=== PATIENT | female | born 1980 ===

== ENCOUNTER → 2022-11-27 07:51 | Outpatient (BNVA) | payer OTHER, SELFPAY | PROVIDERS: PCP Internal Medicine; Visit Provider Psychiatry & Neurology Neurology | DX: Z13.89 Encounter for screening for other disorder (principal) ==

== ENCOUNTER 2023-05-11 07:26 | Outpatient (AMB) | payer OTHER, SELFPAY ==
--- NOTE | 2023-05-11 07:35 | A.OFFVIS_ITS ---
Intake Vital Signs 05/11/23 07:39 Weight 179 lb 4 oz BP 122/62 Blood Pressure Location Rt brachial Position Sitting Pulse 83 Pulse Source Pulse Oximeter Pulse Oximetry (%) 97 Oxygen Delivery Method Room Air Intake Visit Reasons: 2m f/u tingling sens on head/heavy on l side-Conf Intake Note: F/U tingling sensation in head, and numbness also tingling below the back of the neck. 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 she had her baby 4 months ago. she is scheduled for MRI in2 weeks.she still has episodes of numbness and tingling in the left side of head and very concerned about her cogn itive issues. Previous history-SHe is here for tingling and pressure in the left side of the head which started in January of 2021.she has 0-1 episodes a month.It lasts less than 10 minutes. 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 she continued to feel the tingling in left side of face and head and numbness.1 month prior to that her OCP was changed . she felt like the left side of the head was heavy. 2 mths after the symptoms slowly decreased but she had started on aspirin at that time.In January 2021 - she was seen at ER CT head was normal , was seen by neurologist and started on aspirin. she also had on and off pain in left parietal region. she was seen by Dr. De La Paz she was not happy with the appointment. she is not sure if she was on concerta at that time. she is a poor historian - she has lot of details but valencia snot remember some important information. She has been good for past 18 mths with very brief episodes 1/2 mths . she does not think her untreated ADD is causing her memory issues. no h/o migraines in past. sleep is good. [facility] Medical History ADD (attention deficit disorder) Anemia Anxiety Back pain Cervicalgia Depression Environmental allergies Hypersomnia Snoring Vitamin D deficiency Surgical History H/O breast biopsy H/O section Family History Mother Cancer Hypertension Maternal Grandmother Heart disease CHF (congestive heart failure) Social History Household Members: Significant Other and Children Alcohol intake: never Patient Tobacco Use Status: Never used Tobacco Physical Exam Vital Signs: Last Vital Signs Pulse 83 05/11/23 07:39 BP 122/62 05/11/23 07:39 Pulse Ox 97 05/11/23 07:39 Oxygen Delivery Method Room Air 05/11/23 07:39 Const General: cooperative and healthy appearing Nutritional Appearance: obese Orientation/consciousness: patient oriented x3 HEENT Head: Yes normal to inspection and Yes normocephalic Eyes Pupils: Equal, round and reactive pupils present Neck Neck: Yes no meningeal signs Neuro General: patient oriented x3, tone normal, moves all extremities, no meningeal signs and no focal motor deficits Cranial nerves: Yes Facial sensation intact/muscles of mastication intact, Yes Equal, round and reactive pupils present, Yes Bilaterally intact EOM present, Yes Nystagmus not present, Yes Normal facial strength present, Yes Midline tongue present, Yes Symmetric palate elevation present and Yes Ability to bilaterally rotate head present Cognition (Neuro): normal cognition Gait exam (Neuro): Normal gait present Motor exam (neuro): 5/5 motor strength present throughout and Normal motor musc le tone present throughout Coordination: [id number] test normal Assessment & Plan Assessment & Plan (1) Tingling of face: Comment: left face and head Code(s): R20.2 - Paresthesia of skin (2) Pressure in head: Comment: brief episodes -better now Code(s): R51.9 - Headache, unspecified (3) Cognitive change: Code(s): R41.89 - Other symptoms and signs involving cognitive functions and awareness Plan MRI Brain - after her baby. X ray c spine neuropsyhc evaluation Orders: Orders XR cervical spine 3V Today M54.2 - Cervicalgia RT home sleep study Today G47.10 - Hypersomnia, unspecified, R06.83 - Snoring, R41.89 - Other symptoms and signs involving cognitive functions and awareness Referrals Neuropsychiatry Referral F98.8 - Other specified behavioral and emotional disorders with onset usually occurring in childhood and adolescence, R41.89 - Other symptoms and signs involving cognitive functions and awareness Coding Level of Care Code Est Pt Level 4 (52174) Diagnoses Tingling of face R20.2 Pressure in head R51.9 Cognitive change R41.89
[2023-05-11 07:39] VITALS: BP 122/62; PULSE 83; O2SAT 97
== END 2023-05-11 08:23 | disposition home or self-care (01) ==
LOC: HO.HSMS 07:26
PROVIDERS: PCP Internal Medicine; Visit Provider Psychiatry & Neurology Neurology
DX: R20.2 Paresthesia of skin (principal); R51.9 Headache, unspecified; R41.89 Other symptoms and signs involving cognitive functions and awareness
CPT/HCPCS: 99214

== ENCOUNTER → 2023-05-11 07:26 | Outpatient (BNVA) | payer OTHER, SELFPAY | PROVIDERS: PCP Internal Medicine; Visit Provider Psychiatry & Neurology Neurology ==

== ENCOUNTER 2023-05-29 13:11 | Outpatient (REF) | payer OTHER, SELFPAY ==
--- NOTE | ~2023-05-29 | MR_ITS ---
EXAMINATION: MR BRAIN WITHOUT AND WITH CONTRAST CLINICAL INFORMATION: Headache COMPARISON: None TECHNIQUE: Multiplanar multisequence MR imaging of the brain was obtained without and following the administration of 8.5 mL Gadavist intravenous contrast. FINDINGS: There is no acute infarct on diffusion-weighted imaging. There is no intracranial hemorrhage on iron-sensitive imaging. No extra-axial collection or mass effect/herniation. There are several scattered foci of nonspecific supratentorial white matter T2/FLAIR signal abnormality. No hydrocephalus. The ventricles are normal in morphology and size. No abnormal parenchymal or extra-axial enhancement. 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 The major flow voids at the skull base are preserved. The midline structures are normal. The cerebellar tonsils are normally positioned. The craniocervical junction is normal. Marrow signal is within normal limits. The visualized soft tissues are without significant abnormality. Mild left maxillary sinus mucosal thickening. MR/MR head/brain wo/w con IMPRESSION: Unremarkable contrast enhanced MRI of the brain.
== END 2023-05-29 13:12 | disposition home or self-care (01) ==
LOC: HO.MRI 13:11
PROVIDERS: PCP Internal Medicine; Visit Provider Nurse Practitioner Family
DX: R51.9 Headache, unspecified (principal); R20.2 Paresthesia of skin; R41.89 Other symptoms and signs involving cognitive functions and awareness
CPT/HCPCS: 70553; A9585

== ENCOUNTER 2023-06-29 08:17 | Outpatient (AMB) | payer OTHER, SELFPAY ==
[2023-06-29 08:26] VITALS: BP 122/86; PULSE 77; O2SAT 98; BMI 32.6
--- NOTE | 2023-06-29 08:26 | MHC.OFFVIS ---
Intake Vital Signs 06/29/23 08:26 Height 5 ft 2 in Weight 178 lb 4 oz BMI 32.6 BP 122/86 Blood Pressure Location Rt brachial Position Sitting Pulse 77 Pulse Source Pulse Oximeter Pulse Oximetry (%) 98 Oxygen Delivery Method Room Air Intake Visit Reasons: 6wk f/u tingling sens-confirmed Intake Note: Pt presents to the office today for a 6 week follow up for tingling sensations. Pt states her tingling sensations in her neck have decreased since her last visit. She states in the past few week she has have very rare tingling sensations and in the past week she hasn't had any tingling sensations. Allergies No Known Allergies Allergy (Verified 06/29/23 08:27) HPI HPI Comments History of Present Illness Details 42y/o left handed female comes for follow up. she had her baby 5 months ago . Her MRI was normal . Her sleep study was not approved. SHe reports loud snoring , difficulty falling asleep and staying. she also has a 5 month old baby that disrupts the sleep.she is still waiting for her neuropsych she still has episodes of numbness and tingling in the left side of head but less frequent.she has been very busy - 4 year old, going back to work, 5 month old baby etc. She feels her cognition seems better as she is less anxious and not working. Previous history-SHe is here for tingling and pressure in the left side of the head which started in January of 2021.she has 0-1 episodes a month.It lasts less than 10 minutes. 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 she continued to feel the tingling in left side of face and head and numbness.1 month prior to that her OCP was changed . she felt like the left side of the head was heavy. 2 mths after the symptoms slowly decreased but she had started on aspirin at that time.In January 2021 - she was seen at ER CT head was normal , was seen by neurologist and started on aspirin. she also had on and off pain in left parietal region. she was seen by Dr. De La Paz she was not happy with the appointment. she is not sure if she was on concerta at that time. she is a poor historian - she has lot of details but valencia snot remember some important information. She has been good for past 18 mths with very brief episodes 1/2 mths . she does not think her untreated ADD is causing her memory issues. no h/o migraines in past. sleep is good. [facility] Medical History ADD (attention deficit disorder) Anemia Anxiety Back pain Cervicalgia Depression Environmental allergies Hypersomnia Snoring Vitamin D deficiency Surgical History H/O breast biopsy H/O section Family History Mother Cancer Hypertension Maternal Grandmother Heart disease CHF (congestive heart failure) Social History Household Members: Significant Other and Children Alcohol intake: never Patient Tobacco Use Status: Never used Tobacco Physical Exam Vital Signs: Last Vital Signs Pulse 77 06/29/23 08:26 BP 122/86 06/29/23 08:26 Pulse Ox 98 06/29/23 08:26 Oxygen Delivery Method Room Air 06/29/23 08:26 BMI result Body Mass Index 32.6 Const General: cooperative and healthy appearing Nutritional Appearance: obese Orientation/consciousness: patient oriented x3 HEENT Head: Yes normal to inspection and Yes normocephalic Eyes Pupils: Equal, round and reactive pupils present Neck Neck: Yes no meningeal signs Neuro General: patient oriented x3, tone normal, moves all extremities, no meningeal signs and no focal motor deficits Cranial nerves: Yes Facial sensation intact/muscles of mastication intact, Yes Equal, round and reactive pupils present, Yes Bilaterally intact EOM present, Yes Nystagmus not present, Yes Normal facial strength present, Yes Midline tongue present, Yes Symmetric palate elevation present and Yes Ability to bilaterally rotate head present Cognition (Neuro): normal cognition Gait exam (Neuro): Normal gait present Motor exam (neuro): 5/5 motor strength present throughout and Normal motor muscle tone present throughout Coordination: [id number] test normal Assessment & Plan Assessment & Plan (1) Tingling of face: Comment: left face and head Code(s): R20.2 - Paresthesia of skin (2) Pressure in head: Comment: brief episodes -better now Code(s): R51.9 - Headache, unspecified (3) Cognitive change: Code(s): R41.89 - Other symptoms and signs involving cognitive functions and awareness Plan MRI Brain - normal Discussed about talking to a therapist - anxious about going back to work neuropsyhc evaluation Coding Level of Care Code Est Pt Level 4 (35647) Diagnoses Tingling of face R20.2 Pressure in head R51.9 Cognitive change R41.89
== END 2023-06-29 09:12 | disposition home or self-care (01) ==
PROVIDERS: PCP Internal Medicine; Visit Provider Psychiatry & Neurology Neurology
DX: R20.2 Paresthesia of skin (principal); R51.9 Headache, unspecified; R41.89 Other symptoms and signs involving cognitive functions and awareness
CPT/HCPCS: 99214

== ENCOUNTER → 2023-06-29 08:17 | Outpatient (BNVA) | payer OTHER, SELFPAY | PROVIDERS: PCP Internal Medicine; Visit Provider Psychiatry & Neurology Neurology | DX: M54.2 Cervicalgia (principal); R41.89 Other symptoms and signs involving cognitive functions and awareness; F98.8 Other specified behavioral and emotional disorders with onset usually occurring in childhood and adolescence; R06.83 Snoring; G47.10 Hypersomnia, unspecified ==

== ENCOUNTER 2024-01-25 14:00 | Outpatient (AMB) | payer OTHER, SELFPAY ==
--- NOTE | 2024-01-25 14:12 | A.OFFVIS_ITS ---
Intake Vital Signs 01/25/24 14:13 Height 5 ft 2 in Weight 175 lb BMI 32.0 BP 138/78 Blood Pressure Location Rt brachial Position Sitting Respiration 16 Pulse 93 Pulse Source Pulse Oximeter Pulse Oximetry (%) 98 Oxygen Delivery Method Room Air Intake Visit Reasons: m follow up tingling sen/lvm Intake Note: Pt present for a 7 month follow up for cognitive changes. Pt reports her headaches have improved significantly, but her inattention and hyperactivity is driving me crazy . 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 No further episodes of headaches associate dwith numbness and tingling. sometimes she still has some head pressure on the left parietal region - lasted few minutes. she was still able to work . no neck pain. she is on waiting list for neuropsych. she had her baby 12 months ago . Her MRI was normal . 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 Previous history-SHe is here for tingling and pressure in the left side of the head which started in January of 2021.she has 0-1 episodes a month.It lasts less than 10 minutes. 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 she continued to feel the tingling in left side of face and head and numbness.1 month prior to that her OCP was changed . she felt like the left side of the head was heavy. 2 mths after the symptoms slowly decreased but she had started on aspirin at that time.In January 2021 - she was seen at ER CT head was normal , was seen by neurologist and started on aspirin. she also had on and off pain in left parietal region. she was seen by Dr. De La Paz she was not happy with the appointment. she is not sure if she was on concerta at that time. she is a poor historian - she has lot of details but does not remember some important information. [facility] Medical History Hypersomnia Snoring Cervicalgia Environmental allergies ADD (attention deficit disorder) Anxiety Depression Back pain Vitamin D deficiency Anemia Surgical History H/O section H/O breast biopsy Family History Mother Cancer Hypertension Maternal Grandmother Heart disease CHF (congestive heart failure) Social History Household Members: Significant Other and Children Alcohol intake: never Patient Tobacco Use Status: Never used Tobacco Physical Exam Vital Signs: Last Vital Signs Pulse 93 01/25/24 14:13 Resp 16 01/25/24 14:13 BP 138/78 01/25/24 14:13 Pulse Ox 98 01/25/24 14:13 Oxygen Delivery Method Room Air 01/25/24 14:13 BMI result Body Mass Index 32.0 Const General: cooperative and healthy appearing Orientation/consciousness: patient oriented x3 HEENT Head: Yes normal to inspection and Yes normocephalic Eyes Pupils: Equal, round and reactive pupils present Neck Neck: Yes no meningeal signs Neuro General: patient oriented x3, tone normal, moves all extremities, no meningeal signs and no focal motor deficits Cranial nerves: Yes Facial sensation intact/muscles of mastication intact, Yes Equal, round and reactive pupils present, Yes Bilaterally intact EOM present, Yes Nystagmus not present, Yes Normal facial strength present, Yes Midline tongue present, Yes Symmetric palate elevation present and Yes Ability to bilaterally rotate head present Cognition (Neuro): normal cognition Gait exam (Neuro): Normal gait present Motor exam (neuro): 5/5 motor strength present throughout and Normal motor muscle tone present throughout Coordination: [id number] test normal Assessment & Plan Assessment & Plan (1) Tingling of face: Comment: left face and head Code(s): R20.2 - Paresthesia of skin (2) Pressure in head: Comment: brief episodes -better now Code(s): R51.9 - Headache, unspecified (3) Cognitive change: Code(s): R41.89 - Other symptoms and signs involving cognitive functions and awareness Plan MRI Brain - normal She has been working 45 hrs a week - feels she is taking a longer time than other people. Neuropsyhc evaluation Suggested psychotherapy for mood. start concerta 18mg qd- PCP will continue prescribing Medications: New methylphenidate HCl ER (Concerta) F/u with PCP 18 mg PO DAILY 30 tabs 0RF Coding Level of Care Code Est Pt Level 4 (83234) Diagnoses Tingling of face R20.2 Pressure in head R51.9 Cognitive change R41.89
[2024-01-25 14:13] VITALS: BP 138/78; PULSE 93; RESP 16; O2SAT 98; BMI 32.0
== END 2024-01-25 14:41 | disposition home or self-care (01) ==
PROVIDERS: PCP Internal Medicine; Visit Provider Psychiatry & Neurology Neurology
DX: R20.2 Paresthesia of skin (principal); R51.9 Headache, unspecified; R41.89 Other symptoms and signs involving cognitive functions and awareness
CPT/HCPCS: 99214

== ENCOUNTER → 2024-01-25 14:00 | Outpatient (BNVA) | payer OTHER, SELFPAY | PROVIDERS: PCP Internal Medicine; Visit Provider Psychiatry & Neurology Neurology | DX: M54.2 Cervicalgia (principal); R41.89 Other symptoms and signs involving cognitive functions and awareness; F98.8 Other specified behavioral and emotional disorders with onset usually occurring in childhood and adolescence; R06.83 Snoring; G47.10 Hypersomnia, unspecified; R20.2 Paresthesia of skin; R51.9 Headache, unspecified ==

== ENCOUNTER 2024-12-01 15:01 | Outpatient (AMB) | payer OTHER, SELFPAY ==
[2024-12-01 15:08] VITALS: BP 132/84; BMI 34.9
--- NOTE | 2024-12-01 15:08 | MHC.OFFVIS ---
Vital Signs 12/01/24 15:08 Height 5 ft 2 in Weight 191 lb BMI 34.9 BP 132/84 Blood Pressure Location Rt brachial Position Sitting Intake Visit Reasons: 8 mnts f/u appt Intake Note: Patient presents for 8 month follow up Allergies No Known Allergies Allergy (Verified 12/01/24 15:09) HPI Comments Details: 44y/o left handed female comes for follow up.Her neuropsych testing was normal . No further episodes of headaches . Her MRI was normal . 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 she is interested in sleep study - was postponed due to she has snoring and daytime fatigue Previous history-SHe is here for tingling and pressure in the left side of the head which started in January of 2021.she has 0-1 episodes a month.It lasts less than 10 minutes. 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 she continued to feel the tingling in left side of face and head and numbness.1 month prior to that her OCP was changed . she felt like the left side of the head was heavy. 2 mths after the symptoms slowly decreased but she had started on aspirin at that time.In January 2021 - she was seen at ER CT head was normal , was seen by neurologist and started on aspirin. she also had on and off pain in left parietal region. she was seen by Dr. De La Paz she was not happy with the appointment. she is not sure if she was on concerta at that time. she is a poor historian - she has lot of details but does not remember some important information. COUNT INCLUDES [facility] Medical History Hypersomnia Snoring Cervicalgia Environmental allergies ADD (attention deficit disorder) Anxiety Depression Back pain Vitamin D deficiency Anemia Surgical History H/O section H/O breast biopsy Family History Mother Cancer Hypertension Maternal Grandmother Heart disease CHF (congestive heart failure) Social History Household Members: Significant Other and Children Alcohol intake: never Patient Tobacco Use Status: Never used Tobacco Physical Exam Vital Signs: Last Vital Signs BP 132/84 12/01/24 15:08 BMI result Body Mass Index 34.9 Const General: cooperative and healthy appearing Orientation/consciousness: patient oriented x3 HEENT Head: Yes normal to inspection and Yes normocephalic Eyes Pupils: Equal, round and reactive pupils present Neck Neck: Yes no meningeal signs Neuro General: patient oriented x3, tone normal, moves all extremities, no meningeal signs and no focal motor deficits Cranial nerves: Yes Facial sensation intact/muscles of mastication intact, Yes Equal, round and reactive pupils present, Yes Bilaterally intact EOM present, Yes Nystagmus not present, Yes Normal facial strength present, Yes Midline tongue present, Yes Symmetric palate elevation present and Yes Ability to bilaterally rotate head present Cognition (Neuro): normal cognition Gait exam (Neuro): Normal gait present Motor exam (neuro): 5/5 motor strength present throughout and Normal motor muscle tone present throughout Coordination: [id number] test normal Assessment & Plan Assessment & Plan (1) Cognitive change: Code(s): R41.89 - Other symptoms and signs involving cognitive functions and awareness Category: Medical (2) Snoring: Code(s): R06.83 - Snoring Category: Medical (3) Hypersomnia: Code(s): G47.10 - Hypersomnia, unspecified Category: Medical Plan Home sleep test to r/o sleep apnea Suggested psychotherapy for mood. Concerta 18mg qd- PCP tried to increase the dose but she had increased headaches. cognitive therapy . she wants to increase concerta dose. Home sleep test to r/o sleep apnea. Orders: Orders RT home sleep study Today G47.10 - Hypersomnia, unspecified, R06.83 - Snoring Referrals Speech and Hearing Referral F98.8 - Other specified behavioral and emotional disorders with onset usually occurring in childhood and adolescence Coding Level of Care Code Est Pt Level 4 (26688) Diagnoses Cognitive change R41.89 Snoring R06.83 Hypersomnia G47.10
--- OUTSIDE RECORDS SUMMARY | 2024-12-01 18:55 | XMS_ITS | Encounter Summary ---
Author Organization [place] [address] Care Team Providers Care Bread Dough Mixer Name Role Phone Mary Kay Hernandez MD Primary Care Prov ider Reason for Visit * Reason Onset Date Comments OTHER 11/18/2024 Encounter Details Date Type Department Care Team ([facility] st Contact Info) Description 11/18/2024 Telephone Breast Care Center [facility] [address] [place] [address] Thea Amezquita MA OTHER Social History Tobacco Use Types Packs/Day Years Used Date Smoking Tobacco: Never Smokeless Tobacco: Never Alcohol Use Standard Drinks/Week Comments No 0 (1 standard drink = 0.6 oz pur e alcohol) Housing Instability Answer Date Recorde d Are you worried that in the next 2 months you may not have stable housing? No 09/06/2024 Food Access & Nutrition Answer Date Rec orded Do you have access to a vari ety of food including fruits and vegetables? Yes 09/06/2024 Access to Healthcare Answer Date Record ed Within the last 3 months, ho w many times did you visit the emergency department for your medical care? 0 09/06/2024 Health Literacy Answer Date Recorded How often do you need to hav e someone help you when you read instructions, pamphlets, or other written material from your doctor or pharmacy? Never 09/06/2024 Caregiver: How often do you need to have someone help you when you read instructions, pamphlets, or other written material from your doctor or pharmacy? Not on file 09/06/2024 Financial Risk Answer Date Recorded How hard is it for you to pa y for the very basics like food, housing, medical care, and air conditioning / heating? Not very hard 09/06/2024 Transportation Answer Date Recorded Has the lack of transportati on kept you from meetings, work, or from getting things needed for daily living? No Has the lack of transportati on kept you from medical appointments or from getting medications? No 09/06/2024 Social Isolation Answer Date Recorded How often do you feel lonely or isolated from th ose around you? Never 09/06/2024 Food Risk Answer Date Recorded Within the past 12 months we worried whether our food would run out before we got money to buy more. Never true 09/06/2024 Within the past 12 months th e food we bought just didn't last and we didn't have money to get more. Never true 09/06/2024 Dependent Care Answer Date Recorded Do you need help finding or paying for care for your loved ones. For example, child day care center worker or elderly care for an older adult? No 09/06/2024 Education Answer Date Recorded Do you think completing more education or training, like finishing a GED, going to college, or learning a trade, would be helpful for you? N/A 09/06/2024 Employment and Income Answer Date Recor ded During the last four weeks, have you been actively looking for work? No 09/06/2024 Living Situation Answer Date Recorded What is your living situation? 1 11/06/2023 Sex and Gender Information Value Date Recorded Sex Assigned at Not on file Gender Identity Not on file Sexual Orientation Not on file documented as of this encounter Progress Notes * Chata Alaniz MA - 11/28/2024 9:02 AM EST Pt rescheduled for 11/28 * Chata Alaniz MA - 11/21/2024 9:46 AM EST Pt is scheduled for biopsy at [facility] 11/24 * Chata Alaniz MA - 11/18/2024 1:11 PM EST MRI guided biopsy was approved, approval and orders faxed * Thea Amezquita MA - 11/18/2024 8:36 AM EST Pt called in and would like her new MRI order and the insurance approval sent to [facility]. She has an appt on 11/22 F:[phone] documented in this encounter Plan of Treatment Upcoming Encounters Date Type Department Care Team (Late st Contact Info) Description 01/12/2025 8:20 AM EDT Office Visit Breast Care Center [facility] [address] [place] [phone] Alexx Norris MD [address] [place] [address] 02/10/2025 8:45 AM EDT Office Visit Adult Medicine - [place] [address] [place] [address] Mary Kay Hernandez MD [address] [place] [address] documented as of this encounter Visit Diagnoses Not on filedocumented in this encounter Additional Health Concerns Assessment Noted Time PHQ-9 Depression Total Score: 0 09/06/20 24 5:32 AM EST documented as of this encounter Care Teams Bread Dough Mixer Relationship Specialty Start Date End Date Mary Kay Hernandez MD PCP - General 11/01/08 documented as of this encounter
--- OUTSIDE RECORDS SUMMARY | 2024-12-01 18:55 | XMS_ITS | Clinical Summary ---
Author Organization [facility] [address] [facility] l[address] Address [address] [place] [address] Phone Care Team Providers Care Hip Hop Dancer Name Role Phone Mary Kay Hernandez MD Primary Care Prov ider Allergies No known active allergies Medications Medication Sig Dispensed Refills Start Date End Date Status levonorgestreL (MIRENA) 21 mcg/24hr (up to 8 yrs) 52 mg IUD 1 Each by Intrauterine route Once. 02/02/2024 9 Active methylphenidate 18 mg ER tablet Take 1 tablet (18 mg total) by mouth 1 (one) time each day in the morning for 28 days. Max Daily Amount: 18 mg 28 tablet 11/14/2024 5 Active methylphenidate 18 mg ER tablet Take 1 tablet (18 mg total) by mouth 1 (one) time each day in the morning for 28 days. Max Daily Amount: 18 mg 28 tablet 10/14/2024 5 Discontinue d(Reorder) Active Problems Problem Noted Date Diagnosed Date Abnormal glucose tolerance affecting , antepartum 11/05/2022 Overview (09/13/2024): 12/12 pt was never contacted to do test will have done before nv Passed 3hr 12/15 Desires (vaginal after ) tria l 07/14/2022 Overview (09/13/2024): Reviewed with pt that if at least 1cm can place balloon by 40wks if not plan for c/section SOB (shortness of breath) 07/14/2022 Overview (09/13/2024): In early after lunch mostly. Usually with activity Recommended f/u with pcp Denies chest pain Vitamin D deficiency 02/19/2015 Constipation 07/30/2012 Lumbosacral ligament sprain 05/22/2010 Sprain of sacroiliac ligament 05/22/2010 Attention deficit disorder 07/30/2009 Anxiety state 12/01/2008 Depressive disorder 12/01/2008 Encounters Date Type Department Care Team Description 11/18/[address] [facility] [address] [phone] Thea Amezquita [place] OTHER 09/22/[address] [facility] [address] [phone] Alexx Norris MD MRI order 09/06/2024 10:00 AM EST Office Visit Adult Medicine [address] [phone] Mary Kay Hollins MD Other migraine without status migrainosus, not intractable (Primary Dx); Upper respiratory tract infection, unspecified type; Attention deficit disorder, unspecified type from Last 3 Months Immunizations Name Administration Dates Next Due Influenza Quadravalent, MDCK , 0.5ml, preservative free (Flucelvax) 6mo and older 08/13/2022 Influenza trivalent, 0.5mL ( Fluad) 65yo and older 11/25/2013 Influenza trivalent, 0.5mL, preservative free (Fluarix; FluLaval; Fluzone) ages 6mo and older (Afluria) 3 years and older 08/08/2016 Influenza trivalent, MDCK, 0 .5mL, preservative free (Flucelvax) 6mo and older 08/30/2024 Moderna SARS-CoV-2 COVID-19, mRNA, LNP-S, preservative free 12/07/2020 PPD Test 09/13/2014 Tdap Tetanus diptheria acell ular pertussis (Boostrix; Adacel) 7yo and older 11/05/2022,07/16/2018,02/03/2013 Surgical History Surgery Date Site/Laterality Comments SECTION 2018 PROCEDURE: HISTORICAL DELIVERY BREAST BIOPSY Left PROCEDURE: BX BREAST; PERC NEEDLE CORE W/IMAG GUID; COMMENT: benign Medical History Medical History Date Comments Chlamydia contact, treated 03/2011 DX:Ch lamydia contact, treated Family History Medical History Relation Name Comments Other: thyroid disease Aunt mater nal aunt, mat 1st cousin No Known Problems Father unknown hi story No Known Problems Maternal Grandfather no information Thyroid disease Maternal Grandmother ana r, heart disease, CHF, at age 81 Breast cancer Mother metastisis to the lungs Diabetes Mother's side Breast cancer Other 1 mat gr aunt Breast cancer Other 2 mat second cou sin Other: paternal family Other 3 no in formation Relation Name Status Comments Aunt Father Other Maternal Grandfather Other Maternal Grandmother (Age 81) he art problems, pacemaker, lungs full of water Mother (Age 58) cancer Mother's side Other 1 Other 2 Other 3 Paternal Grandfather Other unknown Paternal Grandmother Other unknown Social History Tobacco Use Types Packs/Day Years Used Date Smoking Tobacco: Never Smokeless Tobacco: Never Tobacco Cessation:Counseling Given: Not Answered Alcohol Use Standard Drinks/Week Comments No 0 [...] Record ed Within the last 3 months, kimani jewell many times did you visit the emergency [...] care for your loved ones. For example, school child care attendant or elderly care for an older adult? [...] on file Sexual Orientation Not on file Obstetrics History Last Filed Vital Signs Vital Sign Reading Time Taken Comments Blood Pressure 128/80 09/06/2024 9:47 AM EST Pulse 81 09/06/2024 9:47 AM EST Temperature 37.1 ??C (98.7 ??F) 09/06/2024 9:47 AM ES T Respiratory Rate - - Oxygen Saturation - - Inhaled Oxygen Concentration - - Weight 83.4 kg (183 lb 12.8 oz) 09/06/2024 9:47 AM EST Height 157.5 cm (5' 2 ) 08/17/2024 8:39 AM EDT Body Mass Index 33.62 08/17/2024 8:39 AM EDT Plan of Treatment Upcoming Encounters Date Type Department Care Team (Late st Contact Info) Description 01/12/2025 8:20 AM EDT Office Visit Breast [facility] Center [address] [place] [phone] Alexx Norris MD [address] [facility] [address] [place] [address] 02/10/2025 8:45 AM EDT Office Visit Adult Medicine - [place] [address] [place] [phone] Mary Kay Hernandez MD [address] [place] [address] Health Maintenance Due Date Last Done Comments Hepatitis B Vaccines (1 of 3 - 19+ 3-dose series) 1999 HIV Screening 10/11/2022 Breast Cancer Screening 02/26/2023 02/26/2022, 02/20 COVID-19 Vaccine ( season) 2024 12/07/2020 Depression Screening 09/06/2025 09/06/2024 Social Influencers of Health Screening 09/06/2025 09/06/2024 Cervical Cancer Screening: HPV 02/20/2028 02/19/2023 Cholesterol Screening (Lipid Panel) 04/29/2029 04/29/2024, 04/29/2024 DTaP,Tdap,and Td Vaccines (4 - Td or Tdap) 11/05/2032 11/05/2022, 07/16/2018, 02/03/2013 Hepatitis C Screening Completed 07/04/2022 Influenza Vaccine Completed 08/30/2024, , 08/08/2016, Additional history exists HIB Vaccines Aged Out No longer eligi ble based on patient's age to complete this topic HPV Vaccines Aged Out No longer eligi ble based on patient's age to complete this topic Hepatitis A Vaccines Aged Out No long er eligible based on patient's age to complete this topic IPV Vaccines Aged Out No longer eligi ble based on patient's age to complete this topic MMR Vaccines Aged Out No longer eligi ble based on patient's age to complete this topic Meningococcal ACWY Vaccine Aged Out N o longer eligible based on patient's age to complete this topic Pneumococcal Vaccine: Pediatrics (0 to 5 Years) and At-Risk Patients (6 to 64 Years) Aged Out No longer eligible based on patient's age to complete this topic RSV Immunization Patients Under 20 months Aged Out No longer eligible based on patient's age to complete this topic Varicella Vaccines Aged Out No longer eligible based on patient's age to complete this topic Procedures Procedure Name Priority Date/Time Associated Diagnosis Comments LIPID PANEL Routine 04/29/2024 HPV Routine 02/19/2023 HEPATITIS C SCREENING Routine 07/04/2022 SCREENING MAMMOGRAPHY BI 2-VIEW BREAST INC CAD Routine 02/26/2022 7:46 AM EDT Encounter for screening mammogram for malignant neoplasm of breast from Last 3 Months or Most Recently Relevant to Health Maintenance Results * (ABNORMAL) Lipid panel (04/29/2024) [facility] LDL/HDL Ratio 4 0 - 4 Triglycerides 75 0 - 150 mg/dL Cholesterol 192 0 - 200 mg/dL HDL 54 40 mg/dL LDL Cholesterol 123(A) 0 - 100 mg/dL Blood Venous blood specimen / Unknown Historical Provider LAB BLOOD ORDERAB LES * Cervical Cancer Screening: HPV (02/19/2023) [facility] Cervical Cancer Screening: HPV No interpretation , abstracted [facility] * Hepatitis C Screening (07/04/2022) [facility] Hepatitis C Screening Abstracted [facility] * SCREENING MAMMOGRAPHY BI 2-VIEW BREAST INC CAD (02/26/2022 7:46 AM EDT) Anatomical Region Laterality Modality Radiographic Terese ging 02/20/2021 8:10 AM EDT Narrative 02/26/2022 11:30 AM EDT This is a summary report. The complete report is available in the patient's medical record. If you cannot access the medical record, please contact the sending organization for a detailed fax or copy. Full field digital screening 2D and 3D mammography, reviewed with CAD and compared to previous mammogram of 02/20/2021. The breast tissue is heterogeneously dense, limiting sensitivity. No suspicious mass, architectural distortion or suspicious calcifications are identified. IMPRESSION: : Dense breast tissue, limiting the sensitivity of mammography. No mammographic evidence of malignancy. BIRADS 1-Negative; N. 5 year breast cancer risk assessment N/A Lifetime breast cancer risk assessment N/A Breast cancer risk category Breast cancer risk not assessed Procedure Note Shanon Stallworth MD - 10/21/2022 This is a summary report. The complete report is available in thepatient's medical record. If you cannot access the medical record, pleasecontact the sending organization for a detailed fax or copy. Full field digital screening 2D and 3D mammography, reviewed with CAD andcompared to previous mammogram of 02/20/2021. The breast tissue isheterogeneously dense, limiting sensitivity. No suspicious mass,architectural distortion or suspicious calcifications are identified. IMPRESSION: : Dense breast tissue, limiting the sensitivity of mammography. Nomammographic evidence of malignancy. BIRADS 1-Negative; N. 5 year breast cancer risk assessment N/A Lifetime breast cancer risk assessment N/A Breast cancer risk category Breast cancer risk not assessed Hussain Santana CNDevonte IMG XR PROCEDURES from Last 3 Months or Most Recently Relevant to Health Maintenance Care Teams Hip Hop Dancer Relationship Specialty Start Date End Date Mary Kay Hernandez MD PCP - General 11/01/08
== END 2024-12-01 15:28 | disposition home or self-care (01) ==
PROVIDERS: PCP Internal Medicine; Visit Provider Psychiatry & Neurology Neurology
DX: R41.89 Other symptoms and signs involving cognitive functions and awareness (principal); R06.83 Snoring; G47.10 Hypersomnia, unspecified
CPT/HCPCS: 99214